=== PATIENT | female | born 1935 | race Caucasian/White ===

== ENCOUNTER 2020-01-21 07:51 | Observation (INO) ==
[2020-01-21] MEDS ORDERED: NORMAL SALINE 1,000 ML IV ONE ×2 (08:13→10:34)
[2020-01-21 08:38] LABS: Hematocrit 41.1 % (37.0-47.0); Hemoglobin 12.2 gm/dL (12.5-16.0); Mean Cell Volume 112.9 fl (78-100); Mean Corpuscular Hemoglobin 33.5 pg (27-31); Mean Corpuscular Hgb Conc 29.7 g/dl (32-36); Mean Platelet Volume 11.3 fl (8-12.5); Neutrophil # 9.5 K/mm3 (1.3-6.0); Neutrophil % 83.6 % (42-75.0); Platelet Count 208 K/mm3 (150-450); Red Blood Count 3.64 M/mm3 (4.2-5.4); Red Cell Distribution Width 16.2 % (11.5-14.0); White Blood Count 11.4 K/mm3 (4.0-10.5)
[2020-01-21 08:53] LABS: Anion Gap 18.8 mmol/L (6.8-13.8); BUN/Creatinine Ratio 26.7 (9.0-21.6); Bilirubin, Total 0.4 mg/dL (0.0-1.1); Ca. Corrected For Albumin 10.3 mg/dL (8.4-10.2); Calcium * 9.8 mg/dL (7.9-10.9); Carbon Dioxide 25.9 mmol/L (24-32.6); Potassium 3.7 mmol/L (3.4-4.6); Total Protein 7.4 gm/dL (6.2-8.2); Troponin I 0.044 ng/mL (0.00-0.10)
[2020-01-21 09:16] LABS: Urine Appearance Cloudy (CLEAR); Urine Bilirubin Negative (NEGATIVE); Urine Blood 250 /ul (NEGATIVE); Urine Color Yellow; Urine Ketone Negative (NEGATIVE)
[2020-01-21 09:17] LABS: Urine Nitrite Negative (NEGATIVE); Urine Protein 100 mg/dL (NEGATIVE); Urine RBC >50 /hpf (0-5); Urine Urobilinogen Normal (NORMAL); Urine WBC >50 /hpf (0-5)
[2020-01-21 09:18] LABS: Urine Bacteria 2+
[2020-01-21 09:19] LABS: Urine Amorphous Sediment Many - 3+ (NONE-FEW)
[2020-01-21] MEDS ORDERED: LEVOFLOXACIN IN DEXTROSE 5 % 500 MG/100 ML BAG IV ONE (09:31)
--- NOTE | 2020-01-21 09:34 | ERNOTE ---
Neuro HPI ER Record Date of Service: 01/21/20 Presenting Symptoms: other - unresponsive Time Seen by Provider: 01/21/20 08:23 Source: EMS Exam Limitations: clinical condition Immunizations: IMMUNIZATION HX Immunizations Up to Date Yes History of Influenza Vaccine Yes Hx Pneumococcal Vaccination Yes Allergies/Adverse Reactions: Allergies Allergy/AdvReac Type Severity Reaction Status Date / Time cefazolin [From Ancef] Allergy Verified 01/21/20 07:41 celecoxib [From Celebrex] Allergy Verified 01/21/20 07:41 oxymetazoline Allergy Verified 01/21/20 07:41 [From Dov-Synephrine (phenylephrine)] Penicillins Allergy Verified 01/21/20 07:41 phenylephrine Allergy Verified 01/21/20 07:41 [From Dov-Synephrine (phenylephrine)] tropicamide Allergy Verified 01/21/20 07:41 Home Medications: HOME MEDICATIONS Aspirin [Aspirin Enteric Coated] 81 mg PO DAILY 07/25/12 [Last Taken 09/17/16] Omeprazole [Prilosec Generic] 20 mg PO DAILY 07/25/12 [Last Taken 09/17/16] Simvastatin [Zocor] 20 mg PO HS 07/25/12 [Last Taken 09/17/16] Polyethylene Glycol 3350 [Miralax] 17 gm PO DAILY 08/26/16 [Last Taken 09/17/16] traMADol HCL [Ultram] 50 mg PO TID 08/26/16 [Last Taken 09/17/16] Docusate Sodium [Doc-Q-Lace] 100 mg PO BID 09/21/16 [Last Taken 09/17/16] Glucosamine HCl 1,500 mg PO DAILY 09/21/16 [Last Taken 09/17/16] Montelukast Sodium [Singulair] 10 mg PO QPM 09/21/16 [Last Taken 09/17/16] acetaminophen 325 mg tablet 650 mg PO Q4H PRN tab 09/17/17 [Last Taken Unknown] bismuth subsalicylate 262 mg tablet 2 tab PO Q30-60M PRN 09/17/17 [Last Taken Unknown] chlorhexidine gluconate 0.12 % mouthwash 15 ml MUCOUS MEMBRANE BID 09/17/17 [Last Taken Unknown] cromolyn 4 % eye drops 1 drp OP BID ml 09/17/17 [Last Taken Unknown] cyanocobalamin (vitamin B-12) 1,000 mcg/mL injection kit 1,000 mcg IM QMONTH 09/17/17 [Last Taken Unknown] furosemide 20 mg tablet 20 mg PO DAILY 09/17/17 [Last Taken Unknown] gabapentin 300 mg capsule 300 mg PO QID cap 09/17/17 [Last Taken Unknown] ibuprofen 400 mg tablet 400 mg PO .q4hr PRN tab 09/17/17 [Last Taken Unknown] magnesium hydroxide 400 mg/5 mL oral suspension 30 ml PO HS PRN ml 09/17/17 [Last Taken Unknown] melatonin 10 mg capsule 10 mg PO HS PRN 09/17/17 [Last Taken Unknown] povidone-iodine 10 % topical solution See Rx Instructions TP 3XW 09/17/17 [Last Taken Unknown] sodium chloride 0.65 % nasal spray aerosol 2 spray AYDEE Q1-4H PRN 09/17/17 [Last Taken Unknown] terbinafine HCl 250 mg tablet 250 mg PO DAILY 09/17/17 [Last Taken Unknown] vit C 250 mg-E 200 unit-zinc 40 mg-copper 1 [id number] capsule 2 tab PO QAM cap 09/17/17 [Last Taken Unknown] oxybutynin chloride 5 mg tablet,extended release 24 hr 5 mg PO DAILY 01/27/19 [Last Taken Unknown] nitrofurantoin monohydrate/macrocrystals 100 mg capsule 100 mg PO BID #20 cap 07/04/19 [Last Taken Unknown] potassium chloride 10 mEq tablet,extended release 10 meq PO DAILY #90 tab 08/28/19 [Last Taken Unknown] - History of Present Illness Narrative: No history is available from the patient. She by report was unresponsive this am. NO falls. She has dementia at baseline. She is unable to answer any questions. No other history is available at this time. Onset: other - noted this am Severity: severe - Character of Deficits Additional Deficits: Present: bed-ridden Associated Symptoms: Reports: other - unable Prior Treament: Reports: other - unknown Review of Systems - Narrative Narrative: Entirely unable to obtain at this time. Medical History (Last Reviewed 01/21/20 @ 09:45 by Cordell Mcnamara MD) Acute UTI (Resolved) Hypersomnolence disorder, persistent, moderate (Acute) Chronic confusion (Chronic) But acutely worse recently. 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) Ganglion cyst (Acute) Knee pain, right (Chronic) Alzheimer's dementia (Chronic) Onset Date: Unknown Essential hypertension (Chronic) Onset Date: Unknown GERD without esophagitis (Chronic) Onset Date: Unknown Type 2 diabetes mellitus (Chronic) Onset Date: Unknown Hyperlipidemia due to dietary fat intake (Chronic) Onset Date: Unknown Hypertension (Chronic) Onset Date: Unknown Diabetes mellitus type 2, diet-controlled (Chronic) Onset Date: Unknown Arthritis (Chronic) Onset Date: Unknown Left knee sprain (Acute) Surgical History: Surgical History (Last Reviewed 01/21/20 @ 09:45 by Cordell Mcnamara MD) H/O colonoscopy Onset Date: Unknown 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, 2006, 2007, dr zheng History of cholecystectomy Onset Date: Unknown Previous back surgery Onset Date: Unknown S/P cataract surgery Onset Date: Unknown Family History: Family History (Last Reviewed 01/21/20 @ 09:45 by Cordell Mcnamara MD) Father Cancer brain cancer Mother Hypertension Diabetes Social History: (Last Reviewed 01/21/20 @ 09:45 by Cordell Mcnamara MD) Social History: long-term: Yes current occupational status: retired Highest education level completed: high school graduate Service: No Tobacco: Smoking Status: Never smoker Alcohol: alcohol intake: never Dietary Habits: caffeine: No Physical Exam - Physical Exam General Appearance: Present: other - unresponsive Head Exam: Present: normal inspection. Absent: Gupta's Sign, raccoon eyes Eye Exam: Normal inspection: bilateral, PERRL: bilateral - pinpoint bilaterally Ears, Nose, Throat: Present: dry mucous membranes Neck: Present: other - trachea midline Respiratory: Present: other - shallow breaths, no wheezing heard Cardiovascular/Chest: Present: regular rate, rhythm Gastrointestinal/Abdominal: Present: soft, other - no rigidity Back Exam: Present: other - deferred due to patient condition Extremity Exam: Present: other - no deformity or cellulitis Neurological Exam: Present: other - unresponsive. unable d/t patient condition. Not moving her extremities Skin Exam: Present: pallor Progress - Results and Orders Patient's Lab Results:: I have reviewed the patient's lab results. - Vital Signs Patient's Vital Signs:: I have reviewed the patient's vital signs. Vital Signs: Vital Signs 01/21/20 07:58 01/21/20 08:04 Temperature 36.0 C 36.0 C Pulse Rate 99 96 Respiratory Rate 28 H 31 H Blood Pressure 131/73 110/65 O2 Sat by Pulse Oximetry 101 H 96 - EKG EKG #1 EKG: NSR EKG read: Interp. by me EKG Comments: NSR rate 99. Non-specific, no STMEI noted. - X-Ray X-Ray #1 X-Ray: chest Interpretation: Interp. by me X-ray Comments: No real time radiology reads. I personally reviewed the x-ray image, possible pneumonia. - CT/Ultrasound CT/Ultrasound Narrative: I personally reviewed the radiology report for CT head. - Progress/Reassessment Chief Complaint: Altered Mental Status Progress Note-Subjective: 01/21/20 10:37 IV fluids and IV ABx given. She is DNR, attempted to contact POA without success. D/W Dr Yuan, she will be admitted to the hospital for further management but she clearly has signed DNR/DNI order. Departure Clinical Impression: ARF (acute renal failure), Dehydration, Hypernatremia, UTI (urinary tract infection), Altered mental status - Departure Disposition: Still a patient Condition: Poor
[2020-01-21] MEDS: NORMAL SALINE 1,000 ML IV PRN ×2 (15:45→22:52)
--- NOTE | 2020-01-21 16:02 | HP ---
Chief Complaint - Chief Complaint Date of Service: 01/21/20 Time of Service: 14:00 Chief Complaint: Obtunded mentation, dehydration History of Present Illness: Rosa Elena Sutherland is an 84-year-old female as I care for her at the [facility]. Recently she has become more confused, combating other residents and staff, and having hallucinations. I started her on a low-dose of sertraline and of lamotrigine. She has had some increasing drowsiness over the past 2 weeks. I dropped the lamotrigine down to 25 mg every other day rather than daily. However her mental status continued to decline in this morning they were not able to arouse her at all. I found her with blood pressure of systolic in the 70s and having apneic spells. She was brought to the hospital this morning and has been evaluated in the ER. Findings basically say that she is extremely dehydrated. She received a liter bolus another liter at 200 cc an hour of normal saline in the ER. Lab her admission lab shows her to be hypertonic with a sodium of 167 and a chloride of 27. Potassium is normal. CBC is uneventful. Urinalysis suggests infection. CT of the head is free of any acute process. She is admitted for fluid resuscitation but if she does not respond she will be converted over to comfort measures only. All of her p.o. medicines are being held. Medical History (Last Reviewed 01/21/20 @ 12:40 by Rachel Montes RN) Acute UTI (Resolved) Hypersomnolence disorder, persistent, moderate (Acute) Chronic confusion (Chronic) But acutely worse recently. 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) Ganglion cyst (Acute) Knee pain, right (Chronic) Alzheimer's dementia (Chronic) Onset Date: Unknown Essential hypertension (Chronic) Onset Date: Unknown GERD without esophagitis (Chronic) Onset Date: Unknown Type 2 diabetes mellitus (Chronic) Onset Date: Unknown Hyperlipidemia due to dietary fat intake (Chronic) Onset Date: Unknown Hypertension (Chronic) Onset Date: Unknown Diabetes mellitus type 2, diet-controlled (Chronic) Onset Date: Unknown Arthritis (Chronic) Onset Date: Unknown Left knee sprain (Acute) Hyperlipidemia Major depression Osteoarthritis Surgical History: Surgical History (Last Reviewed 01/21/20 @ 12:40 by Rachel oMntes RN) H/O colonoscopy Onset Date: Unknown 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, 2006, 2007, dr zheng History of cholecystectomy Onset Date: Unknown Previous back surgery Onset Date: Unknown S/P cataract surgery Onset Date: Unknown Family History: Family History (Last Reviewed 01/21/20 @ 12:40 by Rachel Montes RN) Father Cancer brain cancer Mother Hypertension Diabetes Social History: (Last Reviewed 01/21/20 @ 12:40 by Rachel Montes RN) Social History: detention: Yes current occupational status: retired Highest education level completed: high school graduate Service: No Tobacco: Smoking Status: Never smoker Alcohol: alcohol intake: never Dietary Habits: caffeine: No Review Of Systems (GEN) - Review of Systems Generalized/Overall Review: Present: Weakness EENTM: Present: No Symptoms Reported Respiratory: Present: No Symptoms Reported Cardiac: Present: No Symptoms Reported Abdominal: Present: No Symptoms Reported Genitourinary: Present: No Symptoms Reported Musculoskeletal: Present: No Symptoms Reported Neurological: Present: Depressed, Emotional Problems, Weakness, Other - Dementia Skin: Present: No Symptoms Reported, Dryness Endocrine: Present: No Symptoms Reported Immunizations: IMMUNIZATION HX Immunizations Up to Date Yes History of Influenza Vaccine Yes Hx Pneumococcal Vaccination Yes Allergies/Adverse Reactions: Allergies Allergy/AdvReac Type Severity Reaction Status Date / Time cefazolin [From Ancef] Allergy Verified 01/21/20 07:41 celecoxib [From Celebrex] Allergy Verified 01/21/20 07:41 oxymetazoline Allergy Verified 01/21/20 07:41 [From Dov-Synephrine (phenylephrine)] Penicillins Allergy Verified 01/21/20 07:41 phenylephrine Allergy Verified 01/21/20 07:41 [From Dov-Synephrine (phenylephrine)] tropicamide Allergy Verified 01/21/20 07:41 Home Medications: HOME MEDICATIONS Aspirin [Aspirin Enteric Coated] 81 mg PO DAILY 07/25/12 [Last Taken 09/17/16] Omeprazole [Prilosec Generic] 20 mg PO DAILY 07/25/12 [Last Taken 09/17/16] Simvastatin [Zocor] 20 mg PO HS 07/25/12 [Last Taken 09/17/16] Polyethylene Glycol 3350 [Miralax] 17 gm PO DAILY 08/26/16 [Last Taken 09/17/16] traMADol HCL [Ultram] 50 mg PO TID 08/26/16 [Last Taken 09/17/16] Docusate Sodium [Doc-Q-Lace] 100 mg PO BID 09/21/16 [Last Taken 09/17/16] Glucosamine HCl 1,500 mg PO DAILY 09/21/16 [Last Taken 09/17/16] Montelukast Sodium [Singulair] 10 mg PO QPM 09/21/16 [Last Taken 09/17/16] acetaminophen 325 mg tablet 650 mg PO Q4H PRN tab 09/17/17 [Last Taken Unknown] bismuth subsalicylate 262 mg tablet 2 tab PO Q30-60M PRN 09/17/17 [Last Taken Unknown] chlorhexidine gluconate 0.12 % mouthwash 15 ml MUCOUS MEMBRANE BID 09/17/17 [Last Taken Unknown] cromolyn 4 % eye drops 1 drp OP BID ml 09/17/17 [Last Taken Unknown] cyanocobalamin (vitamin B-12) 1,000 mcg/mL injection kit 1,000 mcg IM QMONTH 09/17/17 [Last Taken Unknown] furosemide 20 mg tablet 20 mg PO DAILY 09/17/17 [Last Taken Unknown] gabapentin 300 mg capsule 300 mg PO QID cap 09/17/17 [Last Taken Unknown] ibuprofen 400 mg tablet 400 mg PO .q4hr PRN tab 09/17/17 [Last Taken Unknown] magnesium hydroxide 400 mg/5 mL oral suspension 30 ml PO HS PRN ml 09/17/17 [Last Taken Unknown] melatonin 10 mg capsule 10 mg PO HS PRN 09/17/17 [Last Taken Unknown] povidone-iodine 10 % topical solution See Rx Instructions TP 3XW 09/17/17 [Last Taken Unknown] sodium chloride 0.65 % nasal spray aerosol 2 spray AYDEE Q1-4H PRN 09/17/17 [Last Taken Unknown] terbinafine HCl 250 mg tablet 250 mg PO DAILY 09/17/17 [Last Taken Unknown] vit C 250 mg-E 200 unit-zinc 40 mg-copper 1 [id number] capsule 2 tab PO QAM cap 09/17/17 [Last Taken Unknown] oxybutynin chloride 5 mg tablet,extended release 24 hr 5 mg PO DAILY 01/27/19 [Last Taken Unknown] nitrofurantoin monohydrate/macrocrystals 100 mg capsule 100 mg PO BID #20 cap 07/04/19 [Last Taken Unknown] potassium chloride 10 mEq tablet,extended release 10 meq PO DAILY #90 tab 08/28/19 [Last Taken Unknown] Exam - Exam Vital Signs: Vital Signs - Last Taken Temp 36.0 C 01/21/20 14:27 Pulse 68 01/21/20 14:42 Resp 20 01/21/20 14:27 BP 133/56 01/21/20 14:27 Pulse Ox 98 01/21/20 14:27 Constitutional: Present: Other - Comatose, Elderly, Thin and frail ENT Exam: Present: normal ENT inspection Eye Exam: bilateral eye: abnormal EOM, other - Disconjugate gaze Neck: Present: non-tender, full range of motion, supple, normal inspection Back Exam: Present: normal inspection, no CVA tenderness, no vertebral tenderness Breasts: Present: Exam deferred Respiratory: Present: chest non-tender, lungs clear, normal breath sounds, no respiratory distress, other - Kussmaul respirations. Cardiovascular/Chest: Present: normal peripheral pulses, tachycardia Peripheral Pulses: carotid (R): 2+, carotid (L): 2+, radial (R): 2+, radial (L): 2+ Abdomen: Present: Normal bowel sounds, soft, nontender, nondistended, no rebound tenderness, no hepatospenomegaly, no masses /Rectal: Present: Exam deferred Extremity: Present: normal range of motion, normal inspection, no pedal edema, no calf tenderness Skin Exam: Present: cool/dry, pallor Lymphatic: Present: no adenopathy Neurologic: Present: other - Comatose Appearance: Present: appropriate appearance, impaired recent memory, impaired remote memory, other - Dementia Eye contact: Present: other - Unable to follow commands Thoughts: Present: incoherent Diagnostic Studies: Abnormal Lab Results 01/21/20 01/21/20 01/21/20 Range/Units 08:15 08:28 08:28 WBC 11.4 H (4.0-10.5) K/mm3 RBC 3.64 L (4.2-5.4) M/mm3 Hgb 12.2 L (12.5-16.0) gm/dL MCV 112.9 H (78-100) fl MCH 33.5 H (27-31) pg MCHC 29.7 L (32-36) g/dl RDW 16.2 H (11.5-14.0) % Immature Gran # (Auto) 0.05 H (0.000-0.0310) K/mm3 Neutrophils % 83.6 H (42-75.0) % Lymphocytes % 8.3 L (20-51) % Neutrophils # 9.5 H (1.3-6.0) K/mm3 Lymphocytes # 0.95 L (1.5-3.5) k/mm3 Sodium 167 H* D (132-142) mmol/L Plasma Sodium 168 H* (130-142) mmol/L Chloride 126 H (97-106) mmol/L Anion Gap 18.8 H (6.8-13.8) mmol/L BUN 108 H D (3-23) mg/dL Creatinine 4.05 H D (0.4-1.4) mg/dL Est GFR (Non-Af Amer) 11 L D (60-130) mL/min BUN/Creatinine Ratio 26.7 H (9.0-21.6) Random Glucose 187 H (70-110) mg/dL Calcium Adj for Albumin 10.3 H (8.4-10.2) mg/dL AST 101 H (0-48) U/L ALT 69 H (19-67) U/L Albumin 3.0 L (3.4-5.0) gm/dl Urine Protein 100 H (NEGATIVE) mg/dL Urine Blood 250 H (NEGATIVE) /ul Prot Sulfosalicylic Acd 4+ H (0) mg/dL Ur Leukocyte Esterase 100 H (NEGATIVE) /ul Urine RBC >50 H (0-5) /hpf Urine WBC >50 H (0-5) /hpf Ur Epithelial Cells >25 H (0-5) /hpf Amorphous Sediment Many - 3+ H (NONE-FEW) Urine Bacteria 2+ H (NONE) Laboratory Results WBC 11.4 K/mm3 (4.0-10.5) H 01/21/20 08:28 RBC 3.64 M/mm3 (4.2-5.4) L 01/21/20 08:28 Hgb 12.2 gm/dL (12.5-16.0) L 01/21/20 08: Hct 41.1 % (37.0-47.0) 01/21/20 08: MCV 112.9 fl (78-100) H 01/21/20 08: MCH 33.5 pg (27-31) H 01/21/20 08: MCHC 29.7 g/dl (32-36) L 01/21/20: RDW 16.2 % (11.5-14.0) H 01/21/20 08: Plt Count 208 K/mm3 (150-450) 01/21/20 08: MPV 11.3 fl (8-12.5) 01/21/20: Immature Gran % (Auto) 0.40 % (0.001-0.429) 01/21/20: Immature Gran # (Auto) 0.05 K/mm3 (0.000-0.0310) H 01/21/20 08: Neutrophils % 83.6 % (42-75.0) H 01/21/20 08: Lymphocytes % 8.3 % (20-51) L 01/21/20 08: Monocytes % 6.9 % (0.0-9) 01/21/20: Eosinophils % 0.4 % (0.0-3.0) 01/21/20: Basophils % 0.4 % (0.0-1.0) 01/21/20: Nucleated RBC % 0.0 k/mm3 (0-1) 01/21/20 08: Neutrophils # 9.5 K/mm3 (1.3-6.0) H 01/21/20 08: Lymphocytes # 0.95 k/mm3 (1.5-3.5) L 01/21/20: Monocytes # 0.8 k/mm3 (0.0-1.0) 01/21/20: Eosinophils # 0.1 k/mm3 (0.0-0.7) 01/21/20 08: Absolute Basophils 0.0 k/mm3 (0.0-0.1) 01/21/20 08: Sodium 167 mmol/L (132-142) H* D 01/21/20 08:28 Plasma Sodium 168 mmol/L (130-142) H* 01/21/20 08:28 Potassium 3.7 mmol/L (3.4-4.6) 01/21/20 08: Chloride 126 mmol/L (97-106) H 01/21/20 08:28 Carbon Dioxide 25.9 mmol/L (24-32.6) 01/21/20 08: Anion Gap 18.8 mmol/L (6.8-13.8) H 01/21/20 08: BUN 108 mg/dL (3-23) H D 01/21/20 08: Creatinine 4.05 mg/dL (0.4-1.4) H D 01/21/20: Est GFR (Non-Af Amer) 11 mL/min (60-130) L D 01/21/20 08: BUN/Creatinine Ratio 26.7 (9.0-21.6) H 01/21/20 08: Random Glucose 187 mg/dL (70-110) H 01/21/20 08: Lactic Acid, Venous 1.8 mmol/L (0.4-2.0) 01/21/20 08: Calcium 9.8 mg/dL (7.9-10.9) 01/21/20 08: Calcium Adj for Albumin 10.3 mg/dL (8.4-10.2) H 01/21/20 08: Total Bilirubin 0.4 mg/dL (0.0-1.1) 01/21/20 08: AST 101 U/L (0-48) H 01/21/20: ALT 69 U/L (19-67) H 01/21/20 08: Alkaline Phosphatase 91 U/L (50-170) 01/21/20 08: Troponin I 0.044 ng/mL (0.00-0.10) 01/21/20 08: Total Protein 7.4 gm/dL (6.2-8.2) 01/21/20 08: Albumin 3.0 gm/dl (3.4-5.0) L 01/21/20 08: Urine Color Yellow 01/21/20: Urine Appearance Cloudy (CLEAR) 01/21/20 08:15 Urine pH 7.0 pH (5.0-7.0) 01/21/20 08:15 Ur Specific [place] 1.020 SP.GR. (1.005-1.010) 01/21/20 08:15 Urine Protein 100 mg/dL (NEGATIVE) H 01/21/20 08:15 Urine Glucose (UA) Negative mg/dL (NEGATIVE) 01/21/20 08:15 Urine Ketones Negative mg/dL (NEGATIVE) 01/21/20 08:15 Urine Blood 250 /ul (NEGATIVE) H 01/21/20 08:15 Urine Nitrate Negative (NEGATIVE) 01/21/20 08:15 Urine Bilirubin Negative mg/dl (NEGATIVE) 01/21/20 08:15 Prot Sulfosalicylic Acd 4+ mg/dL (0) H 01/21/20 08:15 Urine Urobilinogen Normal EU/dl (NORMAL) 01/21/20 08:15 Ur Leukocyte Esterase 100 /ul (NEGATIVE) H 01/21/20 08:15 Urine RBC >50 /hpf (0-5) H 01/21/20 08:15 Urine WBC >50 /hpf (0-5) H 01/21/20 08:15 Ur Epithelial Cells >25 /hpf (0-5) H 01/21/20 08:15 Amorphous Sediment Many - 3+ (NONE-FEW) H 01/21/20 08:15 Urine Bacteria 2+ (NONE) H 01/21/20 08:15 Urine Culture Comments Culture to follow 01/21/20 08:15 SARS-CoV-2 (PCR) Not detected (NotDetected) 01/21/20 09:05 Assessment/Plan - Narrative Narrative: 1. Continue rehydration. If this does not resuscitate her then she will go to comfort measures tomorrow. 2. She is a DO NOT RESUSCITATE patient 3. Hold all oral medications - Assessment/Plan (1) Coma Problem: Acute (2) Advanced dementia Problem: Acute (3) Dehydration Problem: Acute (4) Hypernatremia Problem: Acute (5) UTI (urinary tract infection) Problem: Acute
[2020-01-22] MEDS: NORMAL SALINE 1,000 ML IV PRN (06:07)
[2020-01-22 07:42] LABS: Albumin * 2.5 gm/dl (3.4-5.0); Anion Gap 18.7 mmol/L (6.8-13.8); BUN/Creatinine Ratio 30.4 (9.0-21.6); Bilirubin, Total 0.3 mg/dL (0.0-1.1); Ca. Corrected For Albumin 9.5 mg/dL (8.4-10.2); Calcium * 8.6 mg/dL (7.9-10.9); Carbon Dioxide 24.2 mmol/L (24-32.6); Potassium 3.9 mmol/L (3.4-4.6); Total Protein 6.2 gm/dL (6.2-8.2)
[2020-01-22 07:47] LABS: Hematocrit 37.1 % (37.0-47.0); Hemoglobin 10.9 gm/dL (12.5-16.0); Mean Cell Volume 116.3 fl (78-100); Mean Corpuscular Hemoglobin 34.2 pg (27-31); Mean Corpuscular Hgb Conc 29.4 g/dl (32-36); Mean Platelet Volume 12.6 fl (8-12.5); Neutrophil # 6.8 K/mm3 (1.3-6.0); Neutrophil % 74.6 % (42-75.0); Red Blood Count 3.19 M/mm3 (4.2-5.4); Red Cell Distribution Width 16.1 % (11.5-14.0); White Blood Count 9.1 K/mm3 (4.0-10.5)
[2020-01-22 07:48] LABS: Platelet Count 142 K/mm3 (150-450)
[2020-01-22] MEDS ORDERED: 0.5 NORMAL SALINE 1,000 ML IV PRN (10:25)
[2020-01-22] MEDS ORDERED: NYSTATIN ORAL.SUSP PO PRN (10:27)
--- NOTE | 2020-01-22 11:32 | PN ---
Subjective - Date and Time Seen Date: 01/22/20 Time: 10:20 Subjective Narrative: Rosa Elena Sutherland is an 84-year-old female as I care for her at the [facility]. Recently she has become more confused, combating other residents and staff, and having hallucinations. I started her on a low-dose of sertraline and of lamotrigine. She has had some increasing drowsiness over the past 2 weeks. I dropped the lamotrigine down to 25 mg every other day rather than daily. However her mental status continued to decline in this morning they were not able to arouse her at all. I found her with blood pressure of systolic in the 70s and having apneic spells. She was brought to the hospital this morning and has been evaluated in the ER. Findings basically say that she is extremely dehydrated. She received a liter bolus another liter at 200 cc an hour of normal saline in the ER. Lab her admission lab shows her to be hypertonic with a sodium of 167 and a chloride of 27. Potassium is normal. CBC is uneventful. Urinalysis suggests infection. CT of the head is free of any acute process. She is admitted for fluid resuscitation but if she does not respond she will be converted over to comfort measures only. All of her p.o. medicines are being held. Vital signs this morning: Temperature 36.4, pulse 66, BP 142/61, respirations 18, O2 sat 94% on 1 L nasal cannula O2. Lab this morning: Glucose is 134. Sodium has increased to 170. The potassium is 3.1 and the chloride is 131. The CBC is a white count of 9100 and a hemoglobin of 10.9 g. The EGFR is 15 and is up from 11 yesterday. Her exam shows some improvement. Her eyes are open and she is tracking finger motion some. She cannot follow commands. And there is no verbal communication. She is moving her legs and her arms some now. Because the sodium went up on normal saline I will reduce it to half-normal saline. I called her POA. They live in [place] and are on their way driving here and should arrive sometime tomorrow. I reviewed her status with him and that she had been getting IV fluids since admission. I asked him if he wished to continue them and asked that they be stopped if there is no chance of her recovery. She has advanced dementia with behaviors at her baseline and I cannot reassure him that she would return there. Therefore I will discontinue the IV fluids and any future lab work and institute comfort measures only. Objective - Review of Systems Generalized/Overall Review: Reports: Weakness EENTM: Reports: No Symptoms Reported Respiratory: Reports: No Symptoms Reported Cardiac: Reports: No Symptoms Reported Abdominal: Reports: No Symptoms Reported Genitourinary Symptoms: Reports: No Symptoms Reported Musculoskeletal Complaints: Reports: No Symptoms Reported Neurological: Reports: Other - Obtunded mentation Skin: Reports: No Symptoms Reported, Other - Skin turgor has improved since yesterday with hydration Endocrine: Reports: No Symptoms Reported - Vitals Vitals: Last Vital Signs Temp 35.9 C L 01/22/20 09:00 Pulse 74 01/22/20 09:00 Resp 18 01/22/20 09:00 BP 135/68 01/22/20 09:00 Pulse Ox 96 01/22/20 09:00 - Abnormal Lab Findings Abnormal Lab Findings: Abnormal Lab Results 01/22/20 01/22/20 01/22/20 Range/Units 06:50 06:50 06:50 RBC 3.19 L (4.2-5.4) M/mm3 Hgb 10.9 L (12.5-16.0) gm/dL MCV 116.3 H (78-100) fl MCH 34.2 H (27-31) pg MCHC 29.4 L (32-36) g/dl RDW 16.1 H (11.5-14.0) % Plt Count 142 L (150-450) K/mm3 MPV 12.6 H (8-12.5) fl Immature Gran % (Auto) 0.70 H (0.001-0.429) % Immature Gran # (Auto) 0.06 H (0.000-0.0310) K/mm3 Lymphocytes % 13.5 L (20-51) % Neutrophils # 6.8 H (1.3-6.0) K/mm3 Lymphocytes # 1.22 L (1.5-3.5) k/mm3 ESR 68 H (0-15) mm/hr Sodium 170 H* (132-142) mmol/L Plasma Sodium 171 H* (130-142) mmol/L Chloride 131 H (97-106) mmol/L Anion Gap 18.7 H (6.8-13.8) mmol/L BUN 95 H (3-23) mg/dL Creatinine 3.13 H D (0.4-1.4) mg/dL Est GFR (Non-Af Amer) 15 L D (60-130) mL/min BUN/Creatinine Ratio 30.4 H (9.0-21.6) Random Glucose 134 H (70-110) mg/dL AST 68 H (0-48) U/L C-Reactive Prot, Quant 8.0 H (0.0-0.9) mg/dL Albumin 2.5 L (3.4-5.0) gm/dl - Exam Constitutional: Present: Obtunded, Elderly ENT Exam: Present: normal ENT inspection - Yesterday she had a disconjugate gaze and basically was comatose. Today her eyes were open and she is tracking some movement. She is not otherwise responding. Neck: Present: non-tender Breasts: Present: Exam deferred Respiratory: Present: chest non-tender, lungs clear Cardiovascular/Chest: Present: normal peripheral pulses, regular rate, rhythm Abdomen: Present: Normal bowel sounds, soft /Rectal: Present: Exam deferred Extremity: Present: no pedal edema Skin Exam: Present: pallor, other - Improved skin turgor from yesterday Lymphatic: Present: no adenopathy Neurologic: Present: other - Obtunded Appearance: Present: appropriate appearance, neat Eye contact: Present: other - Unable to follow commands Thoughts: Present: incoherent Assessment/Plan Plan Narrative: 1. DC IV fluids and institute comfort measures - Problems/Diagnosis (1) Coma Problem: Acute (2) Advanced dementia Problem: Acute (3) Dehydration Problem: Acute (4) Hypernatremia Problem: Acute (5) UTI (urinary tract infection) Problem: Acute Qualifiers: Urinary tract infection type: acute cystitis Hematuria presence: without hematuria Qualified Code(s): N30.00 - Acute cystitis without hematuria
--- NOTE | 2020-01-22 13:17 | DS ---
(1) Coma Problem: Acute Qualifiers: Coma depth: Roman coma 3-8 Coma timing: at hospital admission Qualified Code(s): R40.2433 - Roman coma scale score 3-8, at hospital admission (2) Advanced dementia Problem: Acute (3) Dehydration Problem: Acute (4) Hypernatremia Problem: Acute (5) UTI (urinary tract infection) Problem: Acute Qualifiers: Urinary tract infection type: acute cystitis Hematuria presence: without hematuria Qualified Code(s): N30.00 - Acute cystitis without hematuria (6) End of life care Problem: Acute Date of Discharge:: 01/22/20 Hospital Course: Rosa Elena Sutherland is an 84-year-old female [place] [facility] [facility] and was [facility] here for evaluation. She was found to be extremely dehydrated and hypernatremic with sodium of 167. She was started on IV fluids and admitted. She has received approximately 4 L of normal saline. The sodium actually went up to 170. I have spoken with her nephew who is her medical POA and he reiterated that they did not want any aggressive measures done. I spoke to him about fluid resuscitation and he felt that if she could be returned to her baseline that it could be continued but I doubted that seriously and so I suggested comfort measures only. IV fluids were discontinued and she is placed on comfort measures. [place] can [place] [facility] [place]. She can also stay on oxygen at 1 L nasal cannula as a comfort measure. Procedures Performed: none Results and Findings: Pending Mircobiology Results 01/21/20 08:55 Blood Blood Culture - Preliminary NO GROWTH 24 HOURS 01/21/20 08:28 Blood Blood Culture - Preliminary NO GROWTH 24 HOURS 01/21/20 08:15 Urine,Catheterized Urine Culture - Preliminary Ruling Out Pathogen Lab Pending Results 01/21/20 08:15: Urine Color Yellow, Urine Appearance Cloudy, Urine pH 7.0, Ur Specific [place] 1.020, Urine Protein 100 H, Urine Glucose (UA) Negative, Urine Ketones Negative, Urine Blood 250 H, Urine Nitrate Negative, Urine Bilirubin Negative, Prot Sulfosalicylic Acd 4+ H, Urine Urobilinogen Normal, Ur Leukocyte Esterase 100 H, Urine RBC >50 H, Urine WBC >50 H, Ur Epithelial Cells >25 H, Amorphous Sediment Many - 3+ H, Urine Bacteria 2+ H, Urine Culture Comments Culture to follow 01/21/20 08:28: WBC 11.4 H, RBC 3.64 L, Hgb 12.2 L, Hct 41.1, MCV 112.9 H, MCH 33.5 H, MCHC 29.7 L, RDW 16.2 H, Plt Count 208, MPV 11.3, Immature Gran % (Auto) 0.40, Immature Gran # (Auto) 0.05 H, Neutrophils % 83.6 H, Lymphocytes % 8.3 L, Monocytes % 6.9, Eosinophils % 0.4, Basophils % 0.4, Nucleated RBC % 0.0, Neutrophils # 9.5 H, Lymphocytes # 0.95 L, Monocytes # 0.8, Eosinophils # 0.1, Absolute Basophils 0.0 01/21/20 08:28: Sodium 167 H* D, Plasma Sodium 168 H*, Potassium 3.7, Chloride 126 H, Carbon Dioxide 25.9, Anion Gap 18.8 H, BUN 108 H D, Creatinine 4.05 H D, Est GFR (Non-Af Amer) 11 L D, BUN/Creatinine Ratio 26.7 H, Random Glucose 187 H, Calcium 9.8, Calcium Adj for Albumin 10.3 H, Total Bilirubin 0.4, AST 101 H, ALT 69 H, Alkaline Phosphatase 91, Troponin I 0.044, Total Protein 7.4, Albumin 3.0 L 01/21/20 08:28: Lactic Acid, Venous 1.8 01/21/20 09:05: SARS-CoV-2 (PCR) Not detected 01/22/20 06:50: WBC 9.1 D, RBC 3.19 L, Hgb 10.9 L, Hct 37.1, MCV 116.3 H, MCH 34.2 H, MCHC 29.4 L, RDW 16.1 H, Plt Count 142 L, MPV 12.6 H, Immature Gran % (Auto) 0.70 H, Immature Gran # (Auto) 0.06 H, Neutrophils % 74.6, Lymphocytes % 13.5 L, Monocytes % 8.8, Eosinophils % 2.1, Basophils % 0.3, Nucleated RBC % 0.0, Neutrophils # 6.8 H, Lymphocytes # 1.22 L, Monocytes # 0.8, Eosinophils # 0.2, Absolute Basophils 0.0 01/22/20 06:50: ESR 68 H 01/22/20 06:50: Sodium 170 H*, Plasma Sodium 171 H*, Potassium 3.9, Chloride 131 H, Carbon Dioxide 24.2, Anion Gap 18.7 H, BUN 95 H, Creatinine 3.13 H D, Est GFR (Non-Af Amer) 15 L D, BUN/Creatinine Ratio 30.4 H, Random Glucose 134 H, Calcium 8.6, Calcium Adj for Albumin 9.5, Total Bilirubin 0.3, AST 68 H, ALT 50, Alkaline Phosphatase 71, C-Reactive Prot, Quant 8.0 H, Total Protein 6.2, Albumin 2.5 L Discharge Location: [facility] Disposition: Hospice Home Home Health Agency: [facility] Hospice Condition: Poor Face to Face Encounter completed per [facility] Guidelines: - She will need a [id number] number hospice with Discharge Activity: Activity as tolerated Discharge Diet: Clear Liquids - If able Additional Patient Instructions (free text): Comfort measures only [facility] Hospice to follow at [facility], please call and fax them discharge information. Prescriptions (Any new or edited meds): Atropine Sulfate [Atropine 1% Ophthalmic Solution] 2 drp SL QID PRN #15 ml PRN Reason: Secretions Transmission Status: Received by [facility] Lorazepam [Lorazepam Intensol] 2 mg PO Q2H PRN #30 oral.conc PRN Reason: Anxiety Transmission Status: Received by [facility] Morphine Sulfate [Morphine Sulfate Conc. Oral Solution] 5 mg PO Q2H PRN #20 ml PRN Reason: Pain Transmission Status: Received by [facility] Acetaminophen [Tylenol Suppository] 650 mg RC Q4H PRN #14 supp PRN Reason: Fever Transmission Status: Received by [facility] Complete Home Medications List: Complete Home Medication List: Latanoprost/Pf [Latanoprost 0.005% Eye Drop] 1 drp TIANNAE 01/21/20 Nystatin 100,000 unit PO .14 DAYS AT A TIME PRN 01/21/20 Acetaminophen [Tylenol Suppository] 650 mg RC Q4H PRN #14 supp 01/22/20 Atropine Sulfate [Atropine 1% Ophthalmic Solution] 2 drp SL QID PRN #15 ml 01/22/20 Lorazepam [Lorazepam Intensol] 2 mg PO Q2H PRN #30 oral.conc 01/22/20 Morphine Sulfate [Morphine Sulfate Conc. Oral Solution] 5 mg PO Q2H PRN #20 ml 01/22/20 Forms: Patient Portal Registration
[2020-01-22 17:16] VITALS: BP 130/50
[2020-01-22] MEDS ORDERED: LATANOPROST 25 DROP BTL EACHEYE SCH (21:00)
== END 2020-01-22 17:25 | disposition hospice, home (50) ==
LOC: ER 07:51 → MS 07:51
PROVIDERS: ADMIT Family Medicine; ATTEND Family Medicine